=== PATIENT | female | born 1975 | race Two or more races ===

== ENCOUNTER → 2017-09-05 | Emergency (ER) | payer OTHER ==
[~2017-09-05] VITALS: Ht 157.5 cm; Wt 54.4 kg
[~2017-09-05] MED LIST: IBUPROFEN600 MG ORAL; Ketorolac 30mg Inj IV ONE; NKM; ROBAXIN500 MG PO; TRAMADOL HCL50 MG ORAL
[2017-09-05 03:46] VITALS: BP 134/84
[2017-09-05 04:19] LABS: EOSINOPHILS % (AUTO) 1.2 % (0.0-3.0); HEMATOCRIT 43.9 % (37.0-47.0); HEMOGLOBIN 14.8 G/DL (12.0-16.0); LYMPHOCYTES % (AUTO) 30.8 % (20.0-45.0); MEAN CORPUSCULAR VOLUME 87 FL (80-99); MONOCYTES % (AUTO) 6.2 % (1.0-10.0); NEUTROPHILS % (AUTO) 60.8 % (45.0-75.0); PLATELET COUNT 271 K/UL (150-450); RED BLOOD COUNT 5.07 M/UL (4.20-5.40); RED CELL DISTRIBUTION WIDTH 11.2 % (11.6-14.8); WHITE BLOOD COUNT 8.3 K/UL (4.8-10.8)
[2017-09-05 04:34] LABS: ANION GAP 10 mmol/L (5-15); APPEARANCE,URINE CLEAR; BILIRUBIN, URINE NEGATIVE (NEGATIVE); BLOOD UREA NITROGEN 9 mg/dL (7-18); CALCIUM 8.9 MG/DL (8.5-10.1); CARBON DIOXIDE 23 MMOL/L (21-32); CHLORIDE 101 MMOL/L (98-107); COLOR,URINE PALE YELLOW; CREATININE 0.6 MG/DL (0.55-1.30); GLUCOSE, URINE (UA) 4+ (NEGATIVE); KETONES,URINE NEGATIVE (NEGATIVE); LEUKOCYTE ESTERASE ,URINE 1+ (NEGATIVE); NITRITE,URINE NEGATIVE (NEGATIVE); PH,URINE 6.5 (4.5-8.0); POTASSIUM 3.3 MMOL/L (3.5-5.1); PROTEIN,URINE 1+ (NEGATIVE); SODIUM 134 MMOL/L (136-145); UROBILINOGEN,URINE NORMAL MG/DL (0.0-1.0)
[2017-09-05 04:38] LABS: ALANINE AMINOTRANSFERASE 32 U/L (12-78); ALBUMIN 3.8 G/DL (3.4-5.0); ALKALINE PHOSPHATASE 101 U/L (46-116); ASPARTATE AMINO TRANSFERASE 21 U/L (15-37); BILIRUBIN,TOTAL 0.2 MG/DL (0.2-1.0)
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
[2017-09-05 06:37] VITALS: BP 130/89
--- NOTE | 2017-09-05 09:40 | Diagnostic Imaging Report ---
Indication: Chest pain Technique: Continuous helical transaxial imaging of the chest was obtained from the thoracic inlet to the upper abdomen. No intravenous contrast was administered. Coronal 2-D reformats were also obtained. Total Dose length Product (DLP): 480.[address] Dose Index Volume (CTDIvol): 15.63 mGy Comparison: none Findings: The lungs are clear. No pleural or pericardial effusions are seen. No adenopathy appreciated. The heart is unremarkable in appearance. Liver is low in attenuation consistent with fatty infiltration with geographic pattern of distribution of fat throughout the liver. IMPRESSION: Fatty liver. The CT scanner at [facility] is accredited by the [employer] and the scans are performed using dose optimization techniques as appropriate to a performed exam including Automatic Exposure control.
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
--- NOTE | 2017-09-05 16:44 | Cardiology Report ---
APPROVED REPORT EKG Measurement Heart [id number] ND [id number] Normal sinus rhythm Normal ECG
== END | disposition home or self-care (01) ==
LOC: EMR 03:44
DX: S09.90XA Unspecified injury of head, initial encounter (principal); S13.4XXA Sprain of ligaments of cervical spine, initial encounter; S20.219A Contusion of unspecified front wall of thorax, initial encounter; V86.99XA Unspecified occupant of other special all-terrain or other off-road motor vehicle injured in nontraffic accident, initial encounter; Y92.9 Unspecified place or not applicable
CPT/HCPCS: 36415; 70450; 71250; 72125; 80053; 81001; 81025; 85025; 85610; 85730; 93005; 99284; J1885